=== PATIENT | female | born 1985 | race Caucasian/White ===

== ENCOUNTER → 2023-12-11 11:01 | Outpatient (REF) | payer OTHER, SELFPAY ==
[2023-12-12 14:49] LABS: Mumps Virus IgG Negative; Rubeola (Measles) IgG Positive; Varicella Zoster IgG (VZV) Positive
[2023-12-12 19:40] LABS: Rubella Positive
[2023-12-12 21:34] LABS: Hepatitis B Surface Antigen Negative (Negative)
[2023-12-13 17:51] LABS: Quantiferon Mitogen minus NIL >10.00 IU/mL; Quantiferon NIL 0.02 IU/mL; Quantiferon TB Gold Plus Negative (Negative)
[2023-12-16 10:44] LABS: Hepatitis B Surface Antibody Negative
== END ==
LOC: OHS 11:01
PROVIDERS: ATTENDING PHYSICIAN Nurse Practitioner Family
DX: Z23 Encounter for immunization (principal)
CPT/HCPCS: 36415; 86480; 86706; 86735; 86762; 86765; 86787; 87340

== ENCOUNTER → 2024-04-14 12:29 | Outpatient (REF) | payer OTHER, SELFPAY ==
[2024-04-14 14:55] LABS: Hepatitis B Surface Antibody Positive
== END ==
LOC: OHS 12:29
PROVIDERS: ATTENDING PHYSICIAN Nurse Practitioner Family
DX: Z23 Encounter for immunization (principal)
CPT/HCPCS: 36415; 86706